=== PATIENT | female | born 1960 | race Two or more races ===

== ENCOUNTER 2023-12-25 15:35 | Emergency (ER) | payer BC ==
[~2023-12-25] VITALS: Ht 152.4 cm; Wt 68.5 kg
[2023-12-25] MEDS ORDERED: ADULT LOW DOSE81 M1 PO (15:58)
[2023-12-25] MEDS ORDERED: GLUMETZA500 MG PO (15:58)
[2023-12-25] MEDS ORDERED: AMLODIPINE-OLM1 EAC2 PO (15:58)
[2023-12-25] MEDS ORDERED: COZAAR100 MG PO (15:58)
[2023-12-25] MEDS ORDERED: CRESTOR40 MG PO (15:58)
[2023-12-25 18:23] LABS: HEMATOCRIT 37.1 % (36.0-45.00); HEMOGLOBIN 12.3 g/dL (12.0-15.00); MEAN CELL VOLUME 83.5 fL (80.00-100.00); MEAN CORPUSCULAR HEMOGLOBIN 27.8 pg (27.00-32.0); MEAN CORPUSCULAR HGB CONC 33.3 g/dl (32.0-36.0); PLATELET COUNT 191 K/uL (150-450); RED BLOOD COUNT 4.43 M/uL (4.00-6.00)
[2023-12-25 18:42] LABS: CALCIUM 9.5 mg/dL (8.5-10.1); CREATININE SERUM 0.73 mg/dL (0.55-1.02); GFR 80.26; POTASSIUM 4.14 mEq/L (3.5-5.1)
[2023-12-25 19:18] LABS: PH,URINE 5.5 (5.0-8.0); URINE APPEARANCE Clear; URINE BILIRRUBIN Negative (NEGATIVE); URINE BLOOD Negative; URINE COLOR Yellow; URINE GLUCOSE Negative (NEGATIVE); URINE LEUKOCYTE Small; URINE NITRATE Negative; URINE PROTEIN Negative (NEGATIVE); URINE UROBILINOGEN 0.2 E.U./dl
[2023-12-25 19:21] LABS: URINE EPITHELIAL CELLS 45.4 uL (0.0-38.8); URINE RBC 12.3 uL (0.0-20.8); URINE WBC 121.3 uL (0.0-23.2)
[2023-12-25 19:23] LABS: URINE BACTERIA > 9821.5 uL (0.0-1933)
== END 2023-12-25 19:43 | disposition home or self-care (01) ==
LOC: ER 15:36
PROVIDERS: General Practice
DX: N39.0 Urinary tract infection, site not specified (principal); B96.20 Unspecified Escherichia coli [E. coli] as the cause of diseases classified elsewhere; E11.9 Type 2 diabetes mellitus without complications; Z79.84 Long term (current) use of oral hypoglycemic drugs; I10 Essential (primary) hypertension; Z91.013 Allergy to seafood